=== PATIENT | female | born 1950 | race African-American/Black ===

== ENCOUNTER 2019-01-03 11:50 | Emergency (ER) | payer MEDICARE ==
[~2019-01-03] VITALS: Ht 165.1 cm; Wt 85.3 kg
[2019-01-03] MEDS ORDERED: NKM (12:04)
[2019-01-03 12:09] VITALS: BP 155/94
--- NOTE | 2019-01-03 12:10 | NUR ---
ED Nurse Note: Pt walked in the ER from home due to bilateral eye burning sensation since this morning around 1100, after being exposured with dust from floor construction. No pain varghese. AOx4, VSS varghese. Will cont to monitor.
--- NOTE | 2019-01-03 12:20 | NUR ---
ED Nurse Note: eyes are being rinsing by NS in the room. pt well tolerating.
--- NOTE | 2019-01-03 12:32 | Emergency Room Report ---
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 Patient denies any pain and foreign body sensation, discharge, photophobia, blurry vision. Patient has not applied any eyedrops inside her eyes. Does not wear contact lenses no glasses. Denies all URI symptoms. Denies swelling and erythema around the eyes. Denies chest pain, shortness of breath, palpitation, abdominal pain no other associated symptoms. Patient reports that the construction workers were working with this and does not recall any chemical exposure and denies fall and injury to the eye Allergies: Coded Allergies: TETRACYCLINE (Verified Allergy, Unknown, 01/03/19) Uncoded Allergies: PENICILLIN (Allergy, Unknown, 01/03/19) Patient History Past Medical History: see triage record Past Surgical History: unable to obtain Pertinent Family History: unable to obtain Last Menstrual Period: menopause Now: No Immunizations: UTD Reviewed Nursing Documentation: PMH: Agreed; PSxH: Agreed Nursing Documentation-PMH Past Medical History: No Stated History Review of Systems All Other Systems: negative except mentioned in HPI Physical Exam Vital Signs Date Time Temp Pulse Resp B/P (MAP) Pulse Ox O2 Delivery O2 Flow Rate FiO2 01/03/19 11:58 98.1 74 16 157/91 (113) 95 Room Air Sp02 EP Interpretation: reviewed, normal General Appearance: normal inspection, well appearing, no apparent distress, alert Head: normocephalic, atraumatic Eyes: bilateral eye normal inspection, bilateral eye PERRL, bilateral eye other - No foreign body noted ENT: normal ENT inspection, normal pharynx Neck: normal inspection, supple Respiratory: normal inspection, chest non-tender, lungs clear, no wheezing Cardiovascular #1: normal inspection, no edema, no murmur Gastrointestinal: normal inspection, non tender, no mass Genitourinary: no CVA tenderness Neurologic: normal inspection, alert, oriented x3 Psychiatric: normal inspection, judgement/insight normal Skin: no rash, palpation normal Lymphatic: normal inspection, no adenopathy Medical Decision Making PA Attestation All my diagnosis and treatment plans were reviewed ad discussed with my supervising physician Dr. Watson Diagnostic Impression: Primary Impression: Allergic conjunctivitis ER Course 68-year-old female with no significant past medical history here complaining of burning sensation in bilateral eyes after having exposure to dust post walking by construction work few hours prior to arrival to the emergency room today. Patient denies any pain and foreign body sensation, discharge, photophobia, blurry vision. Patient has not applied any eyedrops inside her eyes. Does not wear contact lenses no glasses. Denies all URI symptoms. Denies swelling and erythema around the eyes. Denies chest pain, shortness of breath, palpitation, abdominal pain no other associated symptoms. Patient reports that the construction workers were working with this and does not recall any chemical exposure and denies fall and injury to the eye Ddx considered but are not limited to: bacterial conjunctivitis, allergic conjunctivitis, viral conjunctivitis, periorbital cellulitis, global trauma Vital signs: are WNL, pt. is afebrile H&PE are most consistent with: Allergic conjunctivitis ORDERS: Zaditor ED INTERVENTIONS: Eyewash DISCHARGE: At this time pt. is stable for d/c to home. Will provide printed patient care instructions, and any necessary prescriptions. Care plan and follow up instructions have been discussed with the patient prior to discharge. Patient to follow-up with her primary care provider if worsening symptoms Last Vital Signs Date Time Temp Pulse Resp B/P (MAP) Pulse Ox O2 Delivery O2 Flow Rate FiO2 01/03/19 12:09 98.1 84 16 155/94 99 Room Air Disposition: HOME, SELF-CARE Condition: Stable Scripts Ketotifen Fumarate (ZADITOR) 5 Ml Drops 1 DROP BOTH EYES BID for 7 Days, #5 ML 0 Refills Prov: Thony Verdugo 01/03/19 Patient Instructions: Allergic Conjunctivitis, [id number] Thony Verdugo Jan 03, 2019 12:33
[2019-01-03] MEDS ORDERED: ZADITOR5 ML BOTH EYES (12:33)
[2019-01-03 12:48] VITALS: BP 155/94
--- NOTE | 2019-01-03 12:49 | NUR ---
ER DISCHARGE NOTE: Patient is cleared to be discharged per ERMD, pt is aox4, on room air, with stable vital signs. pt was given dc and prescription instructions, pt was able to verbalize understanding, pt id band removed. pt is able to ambulate with steady gait. pt took all belongings.
== END 2019-01-03 12:49 | disposition home or self-care (01) ==
LOC: EMR 12:35
DX: H10.10 Acute atopic conjunctivitis, unspecified eye (principal); Z88.0 Allergy status to penicillin; Z88.8 Allergy status to other drugs, medicaments and biological substances
CPT/HCPCS: 99282